=== PATIENT | female | born 1965 | race Caucasian/White ===

== ENCOUNTER → 2023-10-21 08:05 | Outpatient (REF) | payer OTHER, SELFPAY | LOC: RAD 08:05 | PROVIDERS: ATTENDING PHYSICIAN Family Medicine; FAMILY PHYSICIAN Physician Assistant Medical | DX: N20.0 Calculus of kidney (principal) | CPT/HCPCS: 74176 ==

== ENCOUNTER 2023-11-21 06:30 | Day surgery (SDC) | payer OTHER, SELFPAY ==
[2023-11-18 10:16] VITALS: BMI 27.8
[2023-11-21] VITALS (14 sets, daily range): BP systolic 101–143; BP diastolic 57–85; BMI 27.8
[2023-11-21] MEDS: TYLENOL 1000 MG PO (11:13)
[2023-11-21] MEDS: NORMOSOL-R 1000 IV (11:15)
--- NOTE | 2023-11-21 12:34 | W.IMMPOSTOP ---
Surgical Immed Post Op Note
-
Primary Surgeon: Jarvis
Assisting: Linda HAAS
Pre-op Diagnosis: Umbilical hernia
Post-op Diagnosis: Umbilical hernia and incarcerated epigastric hernia
Procedure Performed: Robot assisted laparoscopic repair of incarcerated epigastric hernia and umbilical hernia (IPOM+)
Anesthesia Type: GETA + TAP blck
Specimen / Cultures: None
Estimated Blood Loss: 5cc
Complications: None immediate
Operative Findings: 1.8cm umbilical defect, 4cm fascial bridge and incarcerated 5mm x1cm defect in epigastric area containing fat. 11cm round ventralight ST
--- NOTE | 2023-11-21 12:37 | OR.RPT ---
Operative Report
Operative Report
Primary Surgeon: Jarvis
Assisting: Linda HAAS
Pre-op Diagnosis: Umbilical hernia
Post-op Diagnosis: Umbilical hernia and incarcerated epigastric hernia
Procedure Performed: Robot assisted laparoscopic repair of incarcerated epigastric hernia and umbilical hernia (IPOM+)
Anesthesia Type: GETA + TAP block
Specimen / Cultures: None
Estimated Blood Loss: 5cc
Complications: None immediate
Operative Findings: 1.8cm umbilical defect, 4cm fascial bridge and incarcerated 5mm x1cm defect in epigastric area containing fat. 11cm round ventralight ST [Total hernia size: 7cm)
Date of surgery: 11/14/23
Indications:� This 58F developed a symptomatic umbilical hernia. Robot assisted laparoscopic repair was planned.
Description of procedure:� The patient was taken to the operating room and positioned into supine position. The patient�s abdomen was prepped and draped in standard sterile fashion. A time-out was completed verifying correct patient, procedure,
site, positioning, and implants and special equipment prior to beginning this procedure.� The hernia was partially manually reduced after induction. A stab incision was made in the left upper quadrant, a Veress needle was inserted and proper
position was confirmed by aspiration and saline drop test. Following this, pneumoperitoneum was created with insufflation of carbon dioxide to 12 mmHg. Then a 8mm robotic trocar was inserted at the left anterior axillary line at the level of the
umbilicus. A laparoscope was inserted and the area of initial trocar entry and Veress needle placement were both inspected and no injuries were found. Two 8mm trocars were then placed a hand's breadth above and below the initial trocar under direct
visualization.
Attention was turned to the umbilicus. The peritoneum was incised several cm superior to the defect and a peritoneal flap was developed in transverse and caudad directions using blunt and sharp dissection and judicious electrocautery. The flap was
extremely thin and broke down quickly. The peritoneum and preperitoneal fat were then stripped from the abdominal wall and the defect was delineated. The defect was identified and measured as above. Fatty contents were reduced. An additional defect
a few cm superior to the umbilucs was noted, measured as above, and fatty contents were reduced. The defects were closed with 0 PDS stratafix suture. The left upper quadrant trocar was upsized to 12mm. An 11cm roung ventralight ST mesh with Echo was
passed into the abdomen. A amanuel was made in the skin above the umbilicus and a suture passer was passed into the abdomen and used to grasp the Echo stay suture. The mesh was elevated to the abdominal wall. It was placed against the underside of the
abdominal wall and secured in place by clamping the stay suture. It was then fixed to the abdominal wall with 2-0 PDS stratafix sutures circumferentially. The echo system was removed. A transversus abdominis plane block was then performed under
laparoscopic vision with marcaine/decadron. The 12mm trocar site was closed at the fascial level with 2-0 PDS under laparoscopic vision.
After ensuring adequate hemostasis, the trocars were removed and the pneumoperitoneum allowed to escape. The trocar incisions were closed at the skin level using 4-0 monocryl and topical skin adhesive. All counts were correct and the patient
tolerated the procedure well and was taken to the postanesthesia care unit in stable condition.
[2023-11-21] MEDS: ZOFRAN 4 MG IV (14:00)
[2023-11-21] MEDS: DILAUDID 0.25 MG IV (14:01)
[2023-11-21] MEDS: TYLENOL 650 MG PO (15:46)
== END 2023-11-21 15:50 | disposition home or self-care (01) ==
LOC: SDS 06:30
PROVIDERS: ATTENDING PHYSICIAN Surgery; FAMILY PHYSICIAN Physician Assistant Medical
DX: K42.0 Umbilical hernia with obstruction, without gangrene (principal); K43.6 Other and unspecified ventral hernia with obstruction, without gangrene
CPT/HCPCS: 49594; 36415; 93005; C1781